=== PATIENT | female | born 1990 | race Caucasian/White ===

== ENCOUNTER 2016-11-04 13:00 | Emergency (ER) | payer OTHER ==
[~2016-11-04] VITALS: Ht 152.4 cm; Wt 93.0 kg
[2016-11-04] MEDS ORDERED: NAPR-260 PO (13:25)
[2016-11-04] MEDS ORDERED: ACET500C5 PO (13:25)
--- NOTE | 2016-11-04 13:37 | ERD ---
ER Documentation Chief Complaint Date/Time DATE: 11/04/16 TIME: 13:28 Chief Complaint HPI This 26-year-old female who presents to the emergency department today complaining of right arm pain for 4-5 months. She states that it is worse at night when she sleeps when she wakes up in the morning. 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 States that she has been having numbness and tingling in her 3 fingers and has been dropping things and loses strength. Denies any fevers or chills. Denies any previous trauma peer ROS All systems reviewed and are negative except as per history of present illness. Medications Home Meds Active Scripts Acetaminophen* (Tylophen*) 500 Mg Capsule, 1 CAP PO Q6H Y for PAIN AND OR ELEVATED TEMP, #30 CAP Prov:LUIZA RODRIGUES PA-C 11/04/16 Naproxen* (Naprosyn*) 500 Mg Tablet, 500 MG PO BID Y for PAIN AND/OR INFLAMMATION, #30 TAB Prov:LUIZA RODRIGUES PA-C 11/04/16 Physical Exam Physical Exam Const: No acute distress Head: Atraumatic Eyes: Normal Conjunctiva ENT: Normal External Ears, Nose and Mouth. Neck: Full range of motion..~ No meningismus. Resp: Clear to auscultation bilaterally Cardio: Regular rate and rhythm, no murmurs Skin: No petechiae or rashes MSK: Right arm with no obvious deformity. No effusion. No ecchymosis. Full active range of motion at shoulder and elbow. Tenderness to palpation over palmar aspect of wrist. Pulses 2+. Distal neurovascularly intact. Good cap refill. Positive Tinel's and Phalen's test Neur: Awake and alert Psych: Normal Mood and Affect Procedures/MDM Is a 26-year-old female who presents to the emergency department today complaining of right arm pain for the past 4-5 months. She had not yet seen her primary care doctor although she does state that she has one. Patient has had no trauma and she has full active range of motion of all her joints I do not feel that she requires imaging at this time. Low suspicion for acute fracture dislocation. Low suspicion for septic joint or gout. Patient symptoms and physical exam appear most consistent with carpal tunnel syndrome. This is also more likely given the patient works 2 jobs in a kitchen. Patient was given a [place] here in the emergency department. Given that her pain is chronic I do not feel that she would benefit from narcotics at this time. Patient was given a prescription for Naprosyn and Tylenol given a Velcro wrist splint. She was instructed that she may sleep at night and use it for work. I did explain to her that she would need to follow-up with her primary care doctor for referral to equipment application specialist and hand specialist. Patient and mother understood. At this time the patient is stable for discharge and outpatient management. Patient should follow up with their PCP in the next 1-2 days. They may return to the emergency department sooner for any persistent or worsening of symptoms. Patient understood and agreed with the plan. Departure Diagnosis: Primary Impression: Arm pain Laterality: right Qualified Code: M79.601 - Pain of right upper extremity Condition: Fair Patient Instructions: Carpal Tunnel Additional Instructions: Call your primary care doctor TOMORROW for an appointment during the next 1-2 days for orthopaedic specialist referral.See the doctor sooner or return here if your condition worsens before your appointment time. Take Naprosyn or Tylenol or Motrin for pain Wear wrist brace for comfort and apply ice and heat as needed LUIZA RODRIGUES PA-C Nov 04, 2016 13:37
[2016-11-04 14:09] VITALS: Ht 152.4 cm; Wt 93.0 kg
== END 2016-11-04 14:00 | disposition home or self-care (01) ==
LOC: FTE 13:00
DX: M79.601 Pain in right arm (principal)
CPT/HCPCS: 99283